=== PATIENT | female | born 1935 | race Caucasian/White ===

== ENCOUNTER 2016-09-09 10:20 | Inpatient (IN) | payer OTHER ==
[2016-09-09] MEDS ORDERED: NS 1,000 ML IV ONE (11:32)
--- NOTE | 2016-09-09 11:32 | EDPHY ---
H & P Stated Complaint: increased weakness Time Seen by Provider: 09/09/16 10:35 HPI/ROS: CHIEF COMPLAINT: Progressive weakness, inability to transfer HISTORY OF PRESENT ILLNESS: The patient presents to the ED with a history of progressive weakness over the past week. Over the past several days she has developed inability to transfer. The patient slumped to the floor several times today and was unable to walk. The patient was eventually brought to the emergency department by paramedics. In the ER she denies any recent fever, cough, congestion, vomiting or diarrhea. She does report urinary frequency which is somewhat chronic. The patient has no complaints of chest pain or shortness of breath. The patient denies any recent medication changes. The patient only takes medications for her glaucoma. Past medical history: Stage 3 kidney disease, osteoporosis, acoustic neuroma, glaucoma, cataracts REVIEW OF SYSTEMS: A comprehensive 10 point review of systems is otherwise negative aside from elements mentioned in the history of present illness. Source: Patient Exam Limitations: No limitations - Personal History Current Tetanus Diphtheria and Acellular Pertussis (TDAP): Unsure - Medical/Surgical History Hx Asthma: No Hx Chronic Respiratory Disease: No Hx Diabetes: No Hx Cardiac Disease: Yes Hx Renal Disease: Yes Hx Cirrhosis: No Hx Alcoholism: No Hx HIV/AIDS: No Hx Splenectomy or Spleen Trauma: No - Social History Smoking Status: Never smoked - Physical Exam Exam: General Appearance: Alert, no distress Eyes: Pupils equal and round no pallor or injection ENT, Mouth: Dry mucous membranes Respiratory: There are no retractions, lungs are clear to auscultation Cardiovascular: Regular rate and rhythm Gastrointestinal: Abdomen is soft and nontender, no masses, bowel sounds normal Neurological: A&O, normal motor function, normal sensory exam, normal cranial nerves Skin: Warm and dry, no rashes Musculoskeletal: Neck is supple nontender Extremities: symmetrical, full range of motion Constitutional: Initial Vital Signs Temperature (C) 37 C 09/09/16 10:35 Heart Rate 106 H 09/09/16 10:35 Respiratory Rate 18 09/09/16 10:35 Blood Pressure 168/104 H 09/09/16 10:35 O2 Sat (%) 82 L 09/09/16 10:35 O2 Delivery Mode Nasal Cannula O2 (L/minute) 4 Allergies/Adverse Reactions: No Known Drug Allergies Allergy (Verified 09/09/16 10:53) Medical Decision Making - Diagnostics EKG Interpretation: EKG: Complete interpretation has been separately recorded in the [email or web address] archive. Summary impression: Sinus tachycardia, rate 99 Imaging Results: Imaging Impressions Chest X-Ray 09/09/16 11:32 Impression: 1. Hypoventilation, airways disease, and mild cardiomegaly. 2. Suspect small left effusion. No pneumonia. ED Course/Re-evaluation: The patient presents to the ED with complaints of increasing global weakness over the past several days. The patient is noted to be clinically dehydrated on my evaluation. The patient does have evidence of a urinary tract infection. The patient's checks x-ray demonstrates no evidence of acute disease. The patient received a 1 L of normal saline for rehydration. Patient will receive 1 g of IV ceftriaxone. The patient will require admission to the hospital in a setting of her global weakness and urinary tract infection. The patient has no fever. She does have leukocytosis. She has no tachycardia. She will be admitted to the hospital for supportive care. Patient is re-evaluated at 1:40 p.m.: She is resting comfortably and will be transferred to the floor. I consulted with [facility] who has requested the patient be admitted at our facility for observation this evening. Differential Diagnosis: Differential diagnosis considered includes metabolic abnormality, renal failure , urinary tract infection, dehydration - Data Points Laboratory Results: Laboratory Results 09/09/16 11:52 09/09/16 12:57 09/09/16 09/09/16 09/09/16 12:57 12:32 11:52 WBC RBC Hgb Hct MCV MCH MCHC RDW Plt Count MPV Neut % (Auto) Lymph % (Auto) [place] % (Auto) Eos % (Auto) Baso % (Auto) Nucleat RBC Rel Count Absolute Neuts (auto) Absolute Lymphs (auto) Absolute Monos (auto) Absolute Eos (auto) Absolute Basos (auto) Absolute Nucleated RBC Immature Gran % Immature Gran # Turbidity TNP Sodium 140 mEq/L mEq/L TNP (134-144) Potassium 3.8 mEq/L mEq/L TNP (3.5-5.2) Chloride 105 mEq/L mEq/L TNP (97-110) Carbon Dioxide 21 mEq/l L mEq/l TNP (22-31) Anion Gap 14 mEq/L mEq/L TNP (8-16) BUN 18 mg/dL mg/dL TNP (7-23) Creatinine 1.2 mg/dL H mg/dL TNP (0.6-1.0) Estimated GFR 43 TNP Glucose 95 mg/dL mg/dL TNP (70-100) Calcium 9.0 mg/dL mg/dL TNP (8.5-10.4) Troponin I TNP Specimen Hemolysis REJ Urine Color OLGA Urine Appearance MODERATELY TURBID Urine pH 5.0 (5.0-7.5) Ur Specific [place] 1.011 (1.002-1.030) Urine Protein 2+ H (NEGATIVE) Urine Ketones NEGATIVE (NEGATIVE) Urine Blood 1+ H (NEGATIVE) Urine Nitrate NEGATIVE (NEGATIVE) Urine Bilirubin NEGATIVE (NEGATIVE) Urine Urobilinogen NEGATIVE EU EU (0.2-1.0) Ur Leukocyte Esterase 3+ H (NEGATIVE) Urine RBC 5-10 /hpf H /hpf (0-3) Urine WBC 50-182 /hpf H /hpf (0-3) Ur Epithelial Cells NONE SEEN /lpf /lpf (NONE-1+) Urine Bacteria 2+ /hpf H /hpf (NONE SEEN) Urine Glucose NEGATIVE (NEGATIVE) 09/09/16 11:52 WBC 16.92 10^3/uL H 10^3/uL (3.80-9.50) RBC 5.94 10^6/uL H 10^6/uL (4.18-5.33) Hgb 17.7 g/dL H g/dL (12.6-16.3) Hct 52.7 % H % (38.0-47.0) MCV 88.7 fL fL (81.5-99.8) MCH 29.8 pg pg (27.9-34.1) MCHC 33.6 g/dL g/dL (32.4-36.7) RDW 15.8 % H % (11.5-15.2) Plt Count 216 10^3/uL 10^3/uL (150-400) MPV 10.1 fL fL (8.7-11.7) Neut % (Auto) 86.4 % H % (39.3-74.2) Lymph % (Auto) 6.1 % L % (15.0-45.0) [place] % (Auto) 6.4 % % (4.5-13.0) Eos % (Auto) 0.0 % L % (0.6-7.6) Baso % (Auto) 0.4 % % (0.3-1.7) Nucleat RBC Rel Count 0.0 % % (0.0-0.2) Absolute Neuts (auto) 14.62 10^3/uL H 10^3/uL (1.70-6.50) Absolute Lymphs (auto) 1.04 10^3/uL 10^3/uL (1.00-3.00) Absolute Monos (auto) 1.08 10^3/uL H 10^3/uL (0.30-0.80) Absolute Eos (auto) 0.00 10^3/uL L 10^3/uL (0.03-0.40) Absolute Basos (auto) 0.06 10^3/uL 10^3/uL (0.02-0.10) Absolute Nucleated RBC 0.00 10^3/uL 10^3/uL (0-0.01) Immature Gran % 0.7 % % (0.0-1.1) Immature Gran # 0.12 10^3/uL H 10^3/uL (0.00-0.10) Turbidity Sodium Potassium Chloride Carbon Dioxide Anion Gap BUN Creatinine Estimated GFR Glucose Calcium Troponin I Specimen Hemolysis Urine Color Urine Appearance Urine pH Ur Specific [place] Urine Protein Urine Ketones Urine Blood Urine Nitrate Urine Bilirubin Urine Urobilinogen Ur Leukocyte Esterase Urine RBC Urine WBC Ur Epithelial Cells Urine Bacteria Urine Glucose Medications Given: Discontinued Medications Sodium Chloride (Ns) 1,000 mls @ 0 mls/hr IV ONCE ONE; Wide Open PRN Reason: Protocol Stop: 09/09/16 11:33 Last Admin: 09/09/16 11:53 Dose: 1,000 mls Ceftriaxone Sodium/Dextrose (Rocephin 1 Gm (Premix)) 50 mls @ 100 mls/hr IV EDNOW ONE PRN Reason: Protocol Stop: 09/09/16 13:25 Last Admin: 09/09/16 13:15 Dose: 50 mls Departure - Departure Disposition: [facility] Acute Clinical Impression: Dehydration, Weakness Urinary tract infection Qualifiers: Urinary tract infection type: acute cystitis Hematuria presence: without hematuria Qualified Code(s): N30.00 - Acute cystitis without hematuria Condition: Good
[2016-09-09 12:00] LABS: % IMMATURE GRANULYOCYTES 0.7 % (0.0-1.1); ABSOLUTE IMMATURE GRANULOCYTES 0.12 10^3/uL (0.00-0.10); ADD DIFF? NO; ADD MORPH? NO; ADD SCAN? NO; ATYPICAL LYMPHOCYTE FLAG 0 (0-99); FRAGMENT RBC FLAG 0 (0-99); HEMATOCRIT 52.7 % (38.0-47.0); HEMOGLOBIN 17.7 g/dL (12.6-16.3); LEFT SHIFT FLG 0 (0-99); LIPEMIA HEMOLYSIS FLAG 80 (0-99); MEAN CELL HEMOGLOBIN 29.8 pg (27.9-34.1); MEAN CELL HEMOGLOBIN CONCENTR. 33.6 g/dL (32.4-36.7); MEAN CELL VOLUME 88.7 fL (81.5-99.8); MEAN PLATELET VOLUME 10.1 fL (8.7-11.7); PLATELET CLUMPS FLAG 10 (0-99); PLATELET COUNT 216 10^3/uL (150-400); RED BLOOD CELL COUNT 5.94 10^6/uL (4.18-5.33); RED CELL DISTRIBUTION WIDTH 15.8 % (11.5-15.2)
--- NOTE | 2016-09-09 12:07 | CPEKG ---
Heart Rate: 99 RR Interval: 606 P-R Interval: 188 QRSD Interval: 92 QT Interval: 360 QTC Interval: 462 P [place]: 72 QRS [place]: 20 T Wave [place]: 191 EKG Severity - ABNORMAL ECG - EKG Impression: SINUS TACHYCARDIA Electronically Signed By: Gutierrez Carl 09-Sep-2016 15:22:40
[2016-09-09 12:44] LABS: COLOR AMBER; LEUKOCYTE ESTERASE,URINE 3+ (NEGATIVE); NITRITE,URINE NEGATIVE (NEGATIVE)
[2016-09-09 12:52] LABS: BACTERIA 2+ /hpf (NONE SEEN); WBC,URINE 50-182 /hpf (0-3)
[2016-09-09] MEDS ORDERED: ONDANSETRON 4 MG/2 ML VIAL IVP PRN (13:27)
[2016-09-09] MEDS ORDERED: ACETAMINOPHEN 325 MG TAB PO PRN (13:27)
[2016-09-09] MEDS ORDERED: ONDANSETRON DISINTEGRATING 4 MG TAB PO PRN (13:27)
[2016-09-09 13:28] LABS: ANION GAP 14 mEq/L (8-16); CARBON DIOXIDE 21 mEq/l (22-31); CHLORIDE 105 mEq/L (97-110); CREATININE 1.2 mg/dL (0.6-1.0); GLOMERULAR FILTRATION RATE 43; GLUCOSE 95 mg/dL (70-100); POTASSIUM 3.8 mEq/L (3.5-5.2); SODIUM 140 mEq/L (134-144)
--- NOTE | 2016-09-09 14:46 | GHP ---
[f rep st] HISTORY AND PHYSICAL DATE OF ADMISSION: 09/09/2016 CHIEF COMPLAINT: Weakness. HISTORY OF PRESENT ILLNESS: Patient is an 80-year-old female with history of CKD and osteoporosis accompanied by her daughter and with weakness. She has had progressive weakness over the last week. They called 911 two times last night after she slid down from the bathtub. She notes increased urinary frequency once every hour. Couple episodes of diarrhea yesterday. Denies fevers chills or sweats. No nausea or vomiting. No headache. No myalgias. Complained of right shoulder pain after being lifted by the paramedics. Per her daughter, she is normally alert and oriented x3. Per daughter, she has a "cardiac condition" but cannot recall the name. It was recommended that she have open bypass surgery several years ago but patient declined. REVIEW OF SYSTEMS: I completed a 10-point review of systems, negative except as noted in HPI. PAST MEDICAL HISTORY: CKD, osteoporosis, acoustic neuroma, glaucoma, cataract, right broken arm, some aortic valve issue, unclear per daughter. PAST SURGICAL HISTORY: 1. Right arm fracture. 2. Left hip. 3. Glaucoma. SOCIAL HISTORY: Lives in [place] with her . 50 years. No alcohol, tobacco or illicits. ALLERGIES: No known drug allergies. MEDICATIONS: Eye drops. FAMILY HISTORY: No CAD. PHYSICAL EXAMINATION: VITAL SIGNS: Temperature 36.9, blood pressure 168/104, now 141/93, heart rate in the low 100s. Respirations 21, 92% on room air. GENERAL: Patient is tired appearing, lying in bed, uncomfortable, restless HEENT: PERRLA. EOMI. Oropharynx clear. Dry mucous membranes. CV: Tachycardic but regular. LUNGS: Diminished breath sounds at bases, very poor effort due to weakness. ABDOMEN: Soft, nontender, nondistended. Positive bowel sounds. : No suprapubic or CVA tenderness. MUSCULOSKELETAL: Overall weakness. Sling over right arm. NEUROLOGIC: 2-12 intact. PSYCH: Alert only to city, not date, month or year. LABORATORY DATA: WBC 16, hemoglobin 17, hematocrit 52, platelets 216. Sodium 140, potassium 3.8, chloride 105, bicarb 21, BUN 18, creatinine 1.2. Anion gap 14. Glucose 95. BNP is 23,400. Magnesium is 2. Troponin is pending. EKG was personally reviewed by me, sinus tachycardia, LVH. Chest x-ray, personally reviewed by me, cardiomegaly, left costophrenic angle blunted. ASSESSMENT AND PLAN: 1. Acute metabolic encephalopathy: suspect secondary to urinary tract infection. Cultures are pending. She is afebrile. We will treat with IV ceftriaxone. Trop pending. EKG with LVH, ST depression V5-6. (A&O x 3 at baseline) 2. Sepsis: due to UTI. Afebrile. Urine cx pending. IV Ceftriaxone. Blood cultures if fevers. 3. Glaucoma: continue home eye drops. 4. Chronic kidney disease. Creatinine 1.2. Unclear baseline. Will obtain outside hospital records. 5. Acute hypoxic respiratory failure: 4 L here. Small effusion and cardiomegaly on x-ray. BNP is greater than 23,000. Per daughter, she has some sort of "valve or heart issue"; recommended for open heart surgery in past, but she declined. TTE today shows severe , MR, TR, MS and severe pulm HTN. I discussed case with Dr. Zepeda who will evaluate patient. Recommend BB, small dose IV lasix. Avoid afterload reduction, ie. nitrates, ACEI. Was dosed hydral x1 prior to TTE results 6. Leukocytosis, secondary to urinary tract infection. Afebrile. Urine culture pending. If fevers, will add blood culture. 7. Weakness: multifactorial with UTI and severe valvular disease. PT/OT once clinically stable. 8. Indeterminate troponin: elevated to 0.198. ST depressions, V5-6. Denies CP. Trend trop. BB, ASA 8. Diet: Regular. 9. Deep venous thrombosis prophylaxis: Lovenox. 10. Code status: DNR. 11. Goals: I spoke with daughter on phone Britta ([phone]) and explained echo results. She states that mother would not want a surgery as has declined in the past. She is agreeable to medical management at this point including BB, Lasix, abx Disposition: transfer to PCU for telemetry, IV Lasix. Critical care time spent: 60 min spent bedside with patient, discussing case with Cardiology and counseling daughter on prognosis and treatment plan. /[id number]/MODL MTDD
[2016-09-09 15:07] LABS: TROPONIN I 0.198 ng/mL (0-0.034)
[2016-09-09] MEDS ORDERED: hydrALAZINE 10 MG TAB PO PRN (15:29)
--- NOTE | 2016-09-09 16:34 | ECHO ---
[id number] + + [address] : : [place] [address] : : [phone] + Adult Echocardiographic Report + ----+ :Name: Mercedes CLARKE Date: 09/09/2016 02:30 PM BP: 148/113 mmHg : : Hospital Admission Number: [id number] Location: 386: :: 1935 Gender: Female Height: 61 in : :Age: 80 yrs Race: WH Weight: 170 lb : :Reason For Study: eval valves, LV FX, hypoxia : : BSA: 1.8 meters2 : :History: bnp 23k, : + ----+ MMode/2D Measurements \T\ Calculations IVSd: 1.6 cm RVDd: 3.3 cm FS: 33.1 % Ao root diam: LVPWd: 1.1 cm LVIDd: 3.7 cm EDV(Teich): 57.2 ml2.8 cm LVIDs: 2.5 cm ESV(Teich): 21.5 ml EF(Teich): 62.5 % LVOT diam: 1.9 cmLVLd ap4: 8.9 cm SV(MOD-sp4): LVOT area: EDV(MOD-sp4): 71.0 ml 3.0 cm2 140.0 ml LVLs ap4: 7.8 cm ESV(MOD-sp4): 69.0 ml EF(MOD-sp4): 50.7 % Normal Measurement Values: + + :LVIDd (3.5-5.7cm) IVSd (0.6-1.1cm) LVPWd (0.6-1.1cm) Aortic Root (2.0-3.7cm)Left Atrium (1.5-4.0cm): :LV Vol(d) (76-115ml) LV Vol(s) (29-48ml) Ejec Fraction (50-65%)PV Jostin (0.6- 1.2m/s) TV Jostin (0.4-1.0m/s) : :MV E Jostin (0.8-1.0m/s)MV A Jostin (0.3-1.0m/s)LVOT Jostin (0.7-1.2m/s) Asc Ao Jostin ( 0.9-1.8m/s) : + + Doppler Measurements \T\ Calculations MV E max jostin: MV V2 mean: MV P1/2t max jostin: Ao V2 max: 172.0 cm/sec 124.6 cm/sec 190.6 cm/sec 430.0 cm/sec MV A max jostin: MV mean PG: MV P1/2t: 50.9 msec Ao max P.7 cm/sec 7.4 mmHg MVA(P1/2t): 4.3 cm2 74.0 mmHg MV E/A: 1.5 MV V2 VTI: MV dec slope: Ao mean PG: MV dec time: 35.5 cm 62.8 mmHg 0.14 sec MVA(VTI): 1.5 cm2 1097 cm/sec2 Ao V2 mean: 387.2 cm/sec Ao V2 VTI: 89.6 cm WALLY(I,D): 0.61 cm2 WALLY(V,D): 0.72 cm2 AI max jostin: LV V1 max: SV(LVOT): 54.4 ml PA V2 max: 312.7 cm/sec 104.2 cm/sec 75.5 cm/sec AI max PG: LV V1 max PG: PA max P.1 mmHg 4.3 mmHg 2.3 mmHg AI dec slope: LV V1 mean P.3 cm/sec2 2.5 mmHg AI P1/2t: LV V1 mean: 227.7 msec 75.4 cm/sec LV V1 VTI: 18.3 cm TR max jostin: 386.1 cm/sec TR max P.6 mmHg RAP systole: 10.0 mmHg RVSP(TR): 69.6 mmHg Left Ventricle The left ventricle is normal in size. There is moderate concentric left ventricular hypertrophy. Left ventricular systolic function is low normal. Ejection Fraction = 50%. Moderate diastolic dysfunction with elevated LV filling pressures. No regional wall motion abnormalities noted. Right Ventricle The right ventricle is normal in size and function. Atria The left atrium is mildly dilated. The Left Atrial Volume is 39 ml/m2. Right atrial size is normal. A dilated inferior vena cava suggests increased right atrial pressure. Mitral Valve The anterior mitral valve leaflet appear thickened. There is moderate to severe mitral annular calcification. There is mild mitral stenosis. There is moderate to severe mitral regurgitation. Tricuspid Valve The tricuspid valve is normal in structure and function. There is no tricuspid stenosis. There is moderate tricuspid regurgitation. Right ventricular systolic pressure is 70mmHg. There is Doppler evidence for severe pulmonary hypertension. Aortic Valve The number of aortic valve leaflets cannot be determined due to severe leaflet calcification. Severe valvular aortic stenosis. Mild to moderate aortic regurgitation. Pulmonic Valve The pulmonic valve is not well visualized. trace to mild pulmonic valvular regurgitation. Great Vessels The aortic root is normal size. Pericardium/Pleural There is no pericardial effusion. Conclusion A two-dimensional transthoracic echocardiogram with M-mode and Doppler was performed. There is moderate concentric left ventricular hypertrophy. Left ventricular systolic function is low normal. Ejection Fraction = 50%. Moderate diastolic dysfunction with elevated LV filling pressures The left atrium is mildly dilated. The Left Atrial Volume is 39 ml/m2. A dilated inferior vena cava suggests increased right atrial pressure. There is moderate to severe mitral annular calcification. There is moderate to severe mitral regurgitation. Mild MS There is moderate tricuspid regurgitation. Right ventricular systolic pressure is 70mmHg. There is Doppler evidence for severe pulmonary hypertension. The number of aortic valve leaflets cannot be determined due to severe leaflet calcification. Severe valvular aortic stenosis. Mild to moderate aortic regurgitation. trace to mild pulmonic valvular regurgitation. No prior echo. Results discussed with Dr. Rebolledo Final Reading Physician: Dr Maggy Zepeda electronically signed on 09/09/2016 04:32 PM Ordering Physician: Christina Rebolledo Performed By: Sho Rogers
[2016-09-09] MEDS ORDERED: FUROSEMIDE 20 MG/2 ML VIAL IVP ONE (16:36)
[2016-09-09] MEDS: METOPROLOL TARTRATE 25 MG TAB PO SCH ×2 (17:50→20:31)
--- NOTE | 2016-09-09 19:27 | GCON ---
[f rep st] CONSULTATION CARDIOLOGY CONSULTATION DATE OF CONSULTATION: 09/09/2016 REFERRING PHYSICIAN: Christina Rebolledo MD CHIEF COMPLAINT: Valvular heart disease, severe aortic stenosis. HISTORY OF PRESENT ILLNESS: We are asked by Dr. Rebolledo to visit with this patient. The patient is an 80-year-old female with a history of severe aortic stenosis. The history is somewhat limited as she seems slightly confused, but she does tell me that it was recommended that she have valve surger y but she has previously declined. She does not carry a diagnosis of coronary disease or arrhythmia to her knowledge. She was brought to the hospital today by her daughter for weakness, inability to get out of bed. Th e patient reports some right-sided shoulder pain, but thinks this is related to EMS trying to help h er up. She denies left-sided chest pain. She denies dyspnea. She says she occasionally gets light headed but has not had syncope. She has not had recent lower extremity edema. Her workup thus far has revealed tachycardia, elevated white count, mild renal insufficiency, a mini daniel elevated troponin, and a significantly elevated BNP at 22,400. She does appear to have a urin haider tract infection. She did have an echocardiogram upon admission which has been reviewed by me an d shows a normal low normal ejection fraction, severe aortic stenosis, moderate to severe mitral reg urgitation, moderate tricuspid regurgitation, and severe pulmonary hypertension at 70 mmHg. REVIEW OF SYSTEMS: A full 10-point review of systems is performed and is negative except for that w hich is outlined above, and in addition she does complain of some dysuria. ALLERGIES: No known drug allergies. PAST MEDICAL HISTORY: 1. Valvular heart disease. 2. Pulmonary hypertension. 3. History of hip surgery. 4. History of arm fracture. 5. Glaucoma. 6. Chronic renal insufficiency. 7. Osteoporosis. 8. Acoustic neuroma. 9. Glaucoma. OUTPATIENT MEDICATIONS: Aspirin 325 mg daily. Atenolol eye drops. SOCIAL HISTORY: The patient is . Her daughter is involved in her care. She does not smoke cigarettes or drink alcohol. FAMILY HISTORY: Not applicable to the current case. PHYSICAL EXAMINATION: VITAL SIGNS: Current blood pressure 139/95, heart rate has ranged from 98-12 6, respiratory rate is 30, oxygen saturation 90% on 5 L nasal cannula. She is afebrile. GENERAL: This is a frail elderly and somewhat ill-appearing older female. She is lying at 30 degrees. HEENT : Sclerae are clear and free of jaundice. Mucous membranes are dry. Dentition is poor. CARDIOVAS CULAR: JVP is less than 10. Carotids equal and 2+ without obvious bruit. Regular rate and rhythm with a 2/6 mid to late peaking systolic ejection murmur heard loudest at the base but throughout the precordium. She also has a 2/6 holosystolic murmur at the left sternal border. No rub or gallop. LUNGS: Bibasilar rales. ABDOMEN: Soft, nontender, nondistended. Positive bowel sounds. No brui ts, masses, or hepatosplenomegaly. EXTREMITIES: Warm and well perfused without cyanosis, clubbing, or edema. NEUROLOGIC: She is alert. She does appear oriented to place and self. No gross focal neurologic deficits. LABORATORY DATA: White count 16.9 with a left shift, hematocrit 52.7, platelets are 216. Sodium 14 0, potassium 3.8, chloride 105, bicarb 21, BUN 14, creatinine 1.2. Troponin 0.198. BNP 20,400. Ur inalysis shows 2+ protein, 1+ blood 3+ leukocyte esterase, and several white cells and some red cell s. Urine culture is pending. EKG reviewed by me: Sinus tachycardia. LVH. Diffuse minimal ST depression. We have no previous. Chest x-ray reviewed by me: Small left-sided effusion. Mild cardiomegaly. Echocardiogram reviewed by me and as detailed above. ASSESSMENT AND PLAN: This is an 80-year-old female with valvular heart disease, most notably severe aortic stenosis and moderate mitral regurgitation, with presumed secondary pulmonary hypertension. She is admitted with weakness and a urinary tract infection. 1. Valvular heart disease: She does not appear total body volume overloaded. She does have change s on her EKG consistent with ischemia, but this is likely subendocardial ischemia in the setting of left ventricular pressure overload. She is hypoxic, but does not have sierra pulmonary edema on ches t x-ray. Could consider gentle diuresis, but would avoid aggressive diuresis in the setting of her urinary tract infection and aortic stenosis. The patient confirms to me that she would not want delisa ron for aortic valve. I did briefly discuss the possibility of TAVR, and she does not seem to comp letely understand this concept. Will need to discuss further when she is more medically stable from an infectious standpoint. Low-dose beta blockers to reduce left ventricular strain. Avoid potent vasodilators such as nitrates or DAISHA inhibitor. 2. Urinary tract infection, and a clinical picture concerning for sepsis. She has been started on antibiotics. She will be monitored on telemetry. 3. Chronic renal insufficiency: Will have unclear baseline. Her creatinine is 1.2. Will have to follow carefully in the setting of her urinary tract infection and valvular disease. 4. Confusion: Unclear baseline. This may be due to her urinary tract infection. 5. Minimally elevated troponin: Likely left ventricular strain in the setting of tachycardia and a ortic stenosis. Her EKG does not show ST elevation. Would trend troponin. Continue aspirin. Thank you for allowing us to participate in this patient's care. Will follow up with you. /[id number]/MODL
[2016-09-09] MEDS ORDERED: BRIMONIDINE 0.2% 5 ML OPHT.BTL RTEYE SCH (20:00)
[2016-09-09] MEDS ORDERED: DORZOLAMIDE/TIMOLOL 10 ML OPHT.BTL EACHEYE SCH (20:00)
[2016-09-09] MEDS: LATANOPROST 0.005% 2.5 ML OPHT DROPS EACHEYE SCH (20:30)
[2016-09-10 04:37] LABS: % IMMATURE GRANULYOCYTES 0.6 % (0.0-1.1); ADD DIFF? NO; ADD MORPH? NO; ADD SCAN? NO; ATYPICAL LYMPHOCYTE FLAG 0 (0-99); FRAGMENT RBC FLAG 0 (0-99); HEMOGLOBIN 15.1 g/dL (12.6-16.3); LEFT SHIFT FLG 0 (0-99); LIPEMIA HEMOLYSIS FLAG 80 (0-99); MEAN CELL HEMOGLOBIN 29.5 pg (27.9-34.1); MEAN CELL HEMOGLOBIN CONCENTR. 32.8 g/dL (32.4-36.7); MEAN PLATELET VOLUME 9.9 fL (8.7-11.7); PLATELET CLUMPS FLAG 0 (0-99); PLATELET COUNT 181 10^3/uL (150-400); RED BLOOD CELL COUNT 5.11 10^6/uL (4.18-5.33); RED CELL DISTRIBUTION WIDTH 14.1 % (11.5-15.2)
[2016-09-10 04:54] LABS: ANION GAP 12 mEq/L (8-16); CALCIUM 8.4 mg/dL (8.5-10.4); CARBON DIOXIDE 20 mEq/l (22-31); CHLORIDE 106 mEq/L (97-110); CREATININE 1.5 mg/dL (0.6-1.0); GLOMERULAR FILTRATION RATE 33; GLUCOSE 94 mg/dL (70-100); POTASSIUM 3.6 mEq/L (3.5-5.2); SODIUM 138 mEq/L (134-144)
--- NOTE | 2016-09-10 08:48 | HOSPPROG ---
Hospitalist Progress Note Objective: Vital Signs Temp Pulse Resp BP Pulse Ox 36.7 C 81 18 112/81 H 97 09/10/16 04:18 09/10/16 08:00 09/10/16 08:00 09/10/16 08:00 09/10/16 08:00 Laboratory Results 09/10/16 03:54 09/10/16 03:54 09/09/16 09/10/16 09/11/16 05:59 05:59 05:59 Intake Total 1150 Output Total 200 Balance 950 ICD10 Worksheet Patient Problems: Problems Problem Status Onset Dehydration Acute Urinary tract infection Acute Weakness Acute
--- NOTE | 2016-09-10 08:55 | SOAPPROG ---
CHRISTA Progress Note Assessment/Plan: Assessment: 80 y/o woman with acute UTI and ARF on CRI with also severe and MR with moderate TR and moderate to severe pulmonary HTN. 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 She appears a little intravascularly dry by my exam. PLAN: 1)continue IV abx 2)continue Metoprolol 25mg PO BID 3)maybe IVF NS 500cc slowly today. 4)pt DNR. 5)will see tommorrow and then probably sign off if clinically stablizing. Thanks. 09/10/16 08:51 Subjective: more alert today. Denies CP, rest shortness of breath or syncope. She articulates she does not want any invasive procedures for her /MR including TAVR. Objective: Vital Signs Temp Pulse Resp BP Pulse Ox 36.7 C 81 18 112/81 H 97 09/10/16 04:18 09/10/16 08:00 09/10/16 08:00 09/10/16 08:00 09/10/16 08:00 Laboratory Results 09/10/16 03:54 09/10/16 03:54 09/09/16 09/10/16 09/11/16 05:59 05:59 05:59 Intake Total 1150 Output Total 200 Balance 950 Physical Exam - Physical Exam General Appearance: no apparent distress EENT: normal ENT inspection Neck: non-tender Respiratory: lungs clear Cardiac/Chest: regular rate, rhythm, systolic murmur, No gallop, No JVD Peripheral Pulses: 1+: carotid (R), carotid (L), femoral (R), femoral (L), dorsalis-pedis (R), dorsalis-pedis (L) Abdomen: non-tender, No guarding Skin: warm/dry Extremities: No pedal edema Neuro/Psych: alert ICD10 Worksheet Patient Problems: Problems Problem Status Onset Dehydration Acute Urinary tract infection Acute Weakness Acute
--- NOTE | 2016-09-10 08:58 | HOSPPROG ---
Hospitalist Progress Note Assessment/Plan: #Sepsis: due to UTI #E coli UTI: cont CTX, sensitivities pending #Acute metabolic encephalopathy: resolved. From UTI #Indeterminate trop: likely demand with UTI and underlying severe #JUSTINA on CKD: due to decreased PO intake, dosed Lasix x 1. Will give back 500cc IVFs today slowly #Severe valvular disease: severe , MR, TR. Patient today declined any surgery or less invasive TAVR. -cont BB. Avoid vasodilators #Weakness: multifactorial with UTI, valvular dz. PT/OT. Recommend SNF #Goals: I had extensive with patient and daughter on goals, palliative care. Recommend SNF after DC. Daughter concerned about her mother and dad being alone in [place]. I rec that she works with PCP for permanent placement Time spent on visit: 50 min. 15 bedside, reviewing labs. Remaining time d/w Cardiology and discussing goals with pt and daughter Subjective: feels mych better. No CP or SOB Objective: Vital Signs Temp Pulse Resp BP Pulse Ox 36.7 C 81 18 112/81 H 97 09/10/16 04:18 09/10/16 08:00 09/10/16 08:00 09/10/16 08:00 09/10/16 08:00 Laboratory Results 09/10/16 03:54 09/10/16 03:54 09/09/16 09/10/16 09/11/16 05:59 05:59 05:59 Intake Total 1150 Output Total 200 Balance 950 - Physical Exam Constitutional: no apparent distress, other (brighter today. Sitting in chair) Eyes: PERRL Ears, Nose, Mouth, Throat: moist mucous membranes, dry mucous membranes Cardiovascular: regular rate and rhythym, no murmur, rub, or gallop Respiratory: no respiratory distress, no rales or rhonchi Gastrointestinal: normoactive bowel sounds, soft, non-tender abdomen, no palpable masses Genitourinary: no bladder fullness Skin: warm Musculoskeletal: full muscle strength Neurologic: AAOx3, CN II-XII Intact Psychiatric: interacting appropriately ICD10 Worksheet Patient Problems: Problems Problem Status Onset Dehydration Acute Urinary tract infection Acute Weakness Acute
[2016-09-10] MEDS ORDERED: ENOXAPARIN 40 MG/0.4 ML SYR SC SCH (09:00)
[2016-09-10] MEDS ORDERED: Herbals/Supplements -Info Only PO SCH (09:00)
[2016-09-10] MEDS ORDERED: NS 1,000 ML IV SCH (09:00)
[2016-09-10] MEDS: METOPROLOL TARTRATE 25 MG TAB PO SCH ×2 (09:43→19:22)
[2016-09-10] MEDS: ASPIRIN 325 MG TAB PO SCH (09:43)
[2016-09-10] MEDS: ENOXAPARIN 30 MG/0.3 ML SYR SC SCH (09:44)
[2016-09-10] MEDS: BRIMONIDINE 0.2% 5 ML OPHT.BTL RTEYE SCH ×2 (19:03→19:18)
[2016-09-10] MEDS: LATANOPROST 0.005% 2.5 ML OPHT DROPS EACHEYE SCH (19:17)
[2016-09-10] MEDS: DORZOLAMIDE/TIMOLOL 10 ML OPHT.BTL EACHEYE SCH (19:18)
[2016-09-11 05:22] LABS: HEMATOCRIT 42.9 % (38.0-47.0); HEMOGLOBIN 14.2 g/dL (12.6-16.3); MEAN CELL HEMOGLOBIN CONCENTR. 33.1 g/dL (32.4-36.7); MEAN CELL VOLUME 90.5 fL (81.5-99.8); RED BLOOD CELL COUNT 4.74 10^6/uL (4.18-5.33); RED CELL DISTRIBUTION WIDTH 13.9 % (11.5-15.2)
[2016-09-11 05:38] LABS: ANION GAP 11 mEq/L (8-16); CALCIUM 8.3 mg/dL (8.5-10.4); CARBON DIOXIDE 19 mEq/l (22-31); CHLORIDE 103 mEq/L (97-110); CREATININE 1.4 mg/dL (0.6-1.0); GLOMERULAR FILTRATION RATE 36; GLUCOSE 97 mg/dL (70-100); POTASSIUM 3.8 mEq/L (3.5-5.2); SODIUM 133 mEq/L (134-144)
--- NOTE | 2016-09-11 08:26 | HOSPPROG ---
Hospitalist Progress Note Assessment/Plan: #Sepsis: resolved. Due to UTI #E coli UTI: completed 3 days abx today #Acute metabolic encephalopathy: resolved. From UTI #Indeterminate trop: likely demand with UTI and underlying severe #JUSTINA on CKD: improved with gentle hydration. Cont to monitor #Severe valvular disease: severe , MR, TR. -Patient declines and surgical intervention including TAVR. -cont BB. Avoid vasodilators #Weakness: multifactorial with UTI, valvular dz. PT/OT. Recommend SNF, pt agreeable today #Disp: DC once accepted to SNF Subjective: no CP or SOB Objective: Vital Signs Temp Pulse Resp BP Pulse Ox 36.8 C 83 19 139/88 H 96 09/11/16 07:58 09/11/16 07:58 09/11/16 07:58 09/11/16 07:58 09/11/16 07:58 Laboratory Results 09/11/16 03:50 09/11/16 03:50 09/10/16 09/11/16 09/12/16 05:59 05:59 05:59 Intake Total 1150 440 Output Total 200 375 Balance 950 65 - Physical Exam Constitutional: other (brighter today. Sitting up in chair eating lunch) Ears, Nose, Mouth, Throat: moist mucous membranes Cardiovascular: regular rate and rhythym, edema (none) Respiratory: no respiratory distress, no rales or rhonchi Gastrointestinal: normoactive bowel sounds Genitourinary: no bladder fullness Skin: warm Musculoskeletal: full muscle strength Neurologic: AAOx3, CN II-XII Intact Psychiatric: interacting appropriately ICD10 Worksheet Patient Problems: Problems Problem Status Onset Dehydration Acute Urinary tract infection Acute Weakness Acute
[2016-09-11] MEDS: ASPIRIN 325 MG TAB PO SCH (08:29)
[2016-09-11] MEDS: ENOXAPARIN 30 MG/0.3 ML SYR SC SCH (08:29)
[2016-09-11] MEDS: METOPROLOL TARTRATE 25 MG TAB PO SCH ×2 (08:30→20:28)
[2016-09-11] MEDS: DORZOLAMIDE/TIMOLOL 10 ML OPHT.BTL EACHEYE SCH ×2 (08:31→20:27)
[2016-09-11] MEDS: BRIMONIDINE 0.2% 5 ML OPHT.BTL RTEYE SCH ×2 (08:31→20:28)
--- NOTE | 2016-09-11 08:42 | SOAPPROG ---
SOAP Progress Note Assessment/Plan: Assessment: 80 y/o woman with acute UTI and ARF on CRI with also severe and MR with moderate TR and moderate to severe pulmonary HTN. 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 She appears euvolemic with no angina, syncope or pulmonary edema. REC: 1)continue PO Metoprolol 25mg PO BID 2)pt not interested in cardiac surgery with AVR and MVR or TAVR. Pt wishes DNR. 3)continue IV abx. 4)cardiology will sign off. call if new cardiac questions. Thanks. 09/11/16 08:39 Subjective: Pt has some chronic right shoulder pain but denies chest pressure, rest dyspnea or syncope. No cough or nausea or fevers. Objective: Vital Signs Temp Pulse Resp BP Pulse Ox 36.8 C 83 19 139/88 H 96 09/11/16 07:58 09/11/16 07:58 09/11/16 07:58 09/11/16 07:58 09/11/16 07:58 Laboratory Results 09/11/16 03:50 09/11/16 03:50 09/10/16 09/11/16 09/12/16 05:59 05:59 05:59 Intake Total 1150 440 Output Total 200 375 Balance 950 65 Physical Exam - Physical Exam General Appearance: alert, no apparent distress EENT: normal ENT inspection Neck: non-tender Respiratory: lungs clear Cardiac/Chest: regular rate, rhythm, systolic murmur, No edema, No gallop, No JVD Peripheral Pulses: 1+: carotid (R), carotid (L), femoral (R), femoral (L), dorsalis-pedis (R), dorsalis-pedis (L) Abdomen: non-tender, No guarding Skin: warm/dry Extremities: No pedal edema Neuro/Psych: alert ICD10 Worksheet Patient Problems: Problems Problem Status Onset Dehydration Acute Urinary tract infection Acute Weakness Acute
[2016-09-11] MEDS: LATANOPROST 0.005% 2.5 ML OPHT DROPS EACHEYE SCH (20:24)
[2016-09-12 04:08] VITALS: RESP 16
[2016-09-12 04:51] LABS: HEMATOCRIT 41.7 % (38.0-47.0); HEMOGLOBIN 13.7 g/dL (12.6-16.3); MEAN CELL HEMOGLOBIN 29.5 pg (27.9-34.1); MEAN CELL HEMOGLOBIN CONCENTR. 32.9 g/dL (32.4-36.7); MEAN CELL VOLUME 89.9 fL (81.5-99.8); RED BLOOD CELL COUNT 4.64 10^6/uL (4.18-5.33); RED CELL DISTRIBUTION WIDTH 13.8 % (11.5-15.2)
[2016-09-12 04:59] LABS: ANION GAP 9 mEq/L (8-16); CALCIUM 8.6 mg/dL (8.5-10.4); CARBON DIOXIDE 21 mEq/l (22-31); CHLORIDE 105 mEq/L (97-110); CREATININE 1.2 mg/dL (0.6-1.0); GLOMERULAR FILTRATION RATE 43; GLUCOSE 98 mg/dL (70-100); POTASSIUM 3.7 mEq/L (3.5-5.2); SODIUM 135 mEq/L (134-144)
[2016-09-12] MEDS: METOPROLOL TARTRATE 25 MG TAB PO SCH (10:00)
[2016-09-12] MEDS: ASPIRIN 325 MG TAB PO SCH (10:00)
[2016-09-12] MEDS: ENOXAPARIN 30 MG/0.3 ML SYR SC SCH (10:00)
[2016-09-12] MEDS: BRIMONIDINE 0.2% 5 ML OPHT.BTL RTEYE SCH (10:01)
[2016-09-12] MEDS: DORZOLAMIDE/TIMOLOL 10 ML OPHT.BTL EACHEYE SCH (10:01)
[2016-09-12] MEDS ORDERED: PNEUMOC 13-VAL CONJ-DIP CRM/PF 0.5 ML SYR IM ONE (11:21)
--- NOTE | 2016-09-12 11:49 | HOSPPROG ---
Hospitalist Progress Note Assessment/Plan: #Sepsis: resolved. Due to UTI #E coli UTI: completed 3 days abx #Acute metabolic encephalopathy: resolved. From UTI #Indeterminate trop: likely demand with UTI and underlying severe #JUSTINA on CKD: improved with gentle hydration. Cont to monitor #Severe valvular disease: severe , MR, TR. -Patient declines and surgical intervention including TAVR. -cont BB. Avoid vasodilators #Weakness: multifactorial with UTI, valvular dz. PT/OT. #Shoulder pain: check xray #Disp: DC to [facility] Subjective: mild pain in right shoulder Objective: Vital Signs Temp Pulse Resp BP Pulse Ox 36.8 C 77 16 134/76 H 96 09/12/16 07:48 09/12/16 07:48 09/12/16 07:48 09/12/16 07:48 09/12/16 07:48 Laboratory Results 09/12/16 04:02 09/12/16 04:02 09/11/16 09/12/16 09/13/16 05:59 05:59 05:59 Intake Total 440 480 Output Total 375 100 Balance 65 380 - Physical Exam Constitutional: no apparent distress Eyes: PERRL Ears, Nose, Mouth, Throat: moist mucous membranes, hearing normal Cardiovascular: regular rate and rhythym, no murmur, rub, or gallop Respiratory: no respiratory distress, no rales or rhonchi Gastrointestinal: normoactive bowel sounds, soft, non-tender abdomen Genitourinary: no bladder fullness Skin: warm Musculoskeletal: other (no redness or warmth over right shoulder. Limited ROM due to discomfort) Neurologic: AAOx3 Psychiatric: interacting appropriately ICD10 Worksheet Patient Problems: Problems Problem Status Onset Dehydration Acute Urinary tract infection Acute Weakness Acute
--- NOTE | 2016-09-12 11:52 | PDIAF ---
- Diagnosis Diagnosis: UTI Code Status: Do Not Resuscitate - Medication Management Discharge Medications: Medications to Continue on Transfer Aspirin [Aspirin 325 mg (*)] 325 mg PO DAILY 09/09/16 [Last Taken Unknown] Brimonidine 0.2% [Alphagan 0.2%] 1 drops RTEYE DAILY@20 09/09/16 [Last Taken Unknown] Dorzolamide HCl/Timolol Maleat [Dorzolamide-Timolol Eye Drops] 1 drop EACHEYE DAILY20 09/09/16 [Last Taken Unknown] Herbals/Supplements -Info Only 1 ea PO DAILY 09/09/16 [Last Taken Unknown] Latanoprost 0.005% [Xalatan 0.005% (*)] 1 drops EACHEYE DAILY20 09/09/16 [Last Taken Unknown] Acetaminophen [Pain Relief] 325 mg PO Q6H PRN #30 capsule 09/12/16 [Last Taken Unknown] Metoprolol Tartrate [Lopressor 25 mg (*)] 25 mg PO BID tab 09/12/16 [Last Taken Unknown] Discharge Medications: Refer to the Discharge Home Medication list for PRN reason. - Orders Services needed: Registered Nurse, Physical Therapy Diet Recommendation: cardiac -low fat low salt Diet Texture: Regular Texture Diet - Follow Up Care Current Providers and Referrals: DORIE,JACKIE [Other] - As per Instructions
[2016-09-12 12:20] VITALS: BP 114/69; PULSE 69; TEMP 98.3; O2SAT 94
--- NOTE | 2016-09-12 12:57 | GDS ---
[f rep st] DISCHARGE SUMMARY DISCHARGE DIAGNOSES: 1. Sepsis. 2. Acute encephalopathy. 3. Escherichia coli urinary tract infection. 4. Indeterminate troponin. 5. Acute kidney injury on chronic kidney disease. 6. Severe valvular disease, severe arteriosclerosis, mitral regurgitation and tricuspid regurgitati on. 7. Weakness. 8. Shoulder pain. HISTORY OF PRESENT ILLNESS: The patient is an 80-year-old female with known valvular heart disease who has declined intervention in the past, who was brought in by daughter and due to weaknes s. This weakness has progressed over the last week prior to admission. They called 911 two times t he night before coming to the ER after she slid down from the bathtub. She did report increased uri nary frequency once every hour. Had a couple episodes of diarrhea. No fevers, chills or sweats. N o nausea, vomiting, or headaches. Complained of right shoulder pain after being lifted by the mazin edics. HOSPITAL COURSE BY PROBLEM: 1. Acute metabolic encephalopathy. This is secondary to sepsis and UTI. This resolved with treatm ent of infection. She is now at her baseline, alert and oriented x3. 2. Sepsis due to UTI, again resolved. 3. Escherichia coli UTI. The patient completed 3 days of antibiotics. 4. Indeterminate troponin, likely demand, with urinary tract infection, underlying severe . Card iology consulted. She did have some mild ischemic change, but this was likely subendocardial given the UTI. Echocardiogram demonstrated severe valvular disease, including severe , mitral regurgita tion and TR. The patient had declined intervention in the past, and to this day still declines surg ical intervention, including a TAVR. She was started on beta andrew. Would avoid vasodilators or DAISHA inhibitor. 5. Weakness, multifactorial, given UTI and valvular disease. She was evaluated by PT and OT, who r ecommended SNF. She will be discharged to [facility]. 6. Shoulder pain likely secondary to being lifted by EMS. X-ray is pending. Pain control with p.r .n. heating pad and Tylenol. DISPOSITION: The patient is stable for discharge. DISCHARGE MEDICATIONS: See medication reconciliation. FOLLOWUP: With her primary care physician. /[id number]/MODL
== END 2016-09-12 16:09 | DRG 871 ==
LOC: EDUNIT# → OBSVTOIN 13:27 → F3E 14:16 → F2W 17:15
PROVIDERS: ADMIT Internal Medicine; ATTEND Internal Medicine
DX: A41.51 Sepsis due to Escherichia coli [E. coli] (principal); N39.0 Urinary tract infection, site not specified; G93.41 Metabolic encephalopathy; N17.9 Acute kidney failure, unspecified; N18.3 Chronic kidney disease, stage 3 (moderate); I35.0 Nonrheumatic aortic (valve) stenosis; I08.1 Rheumatic disorders of both mitral and tricuspid valves; M25.511 Pain in right shoulder; M81.0 Age-related osteoporosis without current pathological fracture; Z66 Do not resuscitate
CPT/HCPCS: 96374; 97116-GP; 97162-GP; 97166-GO; 97530-GP; 97535-GO; J0696; J1650; J1940